=== PATIENT | male | born 2000 | race Caucasian/White ===

== ENCOUNTER 2021-05-12 21:35 | Emergency (ER) | payer OTHER, SELFPAY ==
[2021-05-12 21:42] VITALS: BP 133/82; PULSE 91; RESP 16; TEMP 37.1; O2SAT 96; BMI 24.3
--- NOTE | 2021-05-12 21:57 | XRR_ITS ---
PROCEDURE INFORMATION: Exam: XR Left Finger(s) Exam date and time: 05/12/2021 9:01 PM Age: 20 years old Clinical indication: Injury or trauma; Other: Cut while working on cabinets; Laceration; Left; Index finger; Injury date: 05/12/2021; Additional info: Laceration/index TECHNIQUE: Imaging protocol: XR Left fingers. Views: Minimum 2 views. COMPARISON: No relevant prior studies available. FINDINGS: Bones/joints: Bandage material overlies the palmar aspect of the 2nd digit at the proximal interphalangeal joint. There is deformity of the base of the middle phalanx anteriorly. An open fracture cannot be excluded. Soft tissues: Normal. XR/XR finger LT min 2V 17165 IMPRESSION: 1. Bandage material overlies the palmar aspect of the 2nd digit of the left hand. 2. There is deformity of the base of the middle phalanx of the 2nd digit anteriorly suspicious for an open fracture.
--- NOTE | 2021-05-12 21:59 | W.ED.WOUNDLC ---
HPI - Wound/Laceration General: Chief Complaint: Wound/Laceration Stated Complaint: Left Finger Lac Time Seen by Provider: 05/12/21 21:51 Source: patient Mode of arrival: ambulatory Limitations: no limitations History of Present Illness: Patient is a 20-year-old male presents to ED today along with his father for concerns of a laceration to his left index finger that he sustained just prior to arrival after he cut it on a door while they were remodeling. Tetanus is up-to-date. Onset (ago): hour(s) Extremity Location: Left: hand Place: home Patient tetanus UTD: Yes Context: accidental Associated symptoms: Reports no associated symptoms Treatments prior to arrival: bandage Review of Systems Musc: Reports: extremity pain (L index finger) Neuro: Denies: numbness in extremities or sensory changes PFS ED PFSH: Family History Brother Stroke Social History Smoking and tobacco status: never smoked Alcohol intake: never Current occupational status: student Current gender identity: Male Physical Exam Const: COMMON NORMALS: no acute distress, average body habitus, no limitations, healthy appearing, alert and well nourished Extremity: GENERAL: Yes normal exam except as noted LEFT UPPER EXTREMITY: Yes hand & digits (laceration overlying palmar PIP joint; full ROM against resistance ) Left hand and digits: Yes ROM (normal) and Yes neurovascular exam (normal) Neuro: COMMON NORMALS: moves all extremities, no focal motor deficits and no sensory deficits noted SENSORIUM/ORIENTATION: Yes alert Skin: NARRATIVE SKIN EXAM: See extremity assessment for pertinent skin findings Procedures Laceration Laceration 1: Site: hand (L index finger) Side (If applicable): left Size (cm): 2.0 Description: linear Depth: simple, single layer Local Anesthetic: lidocaine 1% (digital block) Amount of anesthesia used (mL): 3 Pre-repair: wound explored and irrigated extensively Skin layer closed with: nylon Size (cm): 4-0 Number of sutures: 5 Technique: simple, interrupted Course Vital Signs: Vital signs: Vital Signs Temperature 98.7 F 05/12/21 21:42 Pulse Rate 91 05/12/21 21:42 Respiratory Rate 16 05/12/21 21:42 Blood Pressure 133/82 05/12/21 21:42 Pulse Oximetry 96 05/12/21 21:42 MDM - Wound/Laceration Medical Decision Making Wound was copiously irrigated repaired as documented. XR does show slight deformity at the base of his middle phalanx. Patient states he has fractured this digit before however fracture is at site of injury. Patient will be placed in a finger splint and placed on antibiotics. Patient states he will be returning to college in [place] tomorrow. He will follow up with his sports medicine physician there for further evaluation. Strict return to ED precautions given. Wound care/infection precautions discussed with patient and father. Lab Data Radiology Impressions Finger X-Ray 05/12/21 21:57 IMPRESSION: 1. Bandage material overlies the palmar aspect of the 2nd digit of the left hand. 2. There is deformity of the base of the middle phalanx of the 2nd digit anteriorly suspicious for an open fracture. Discharge Plan Discharge Patient Disposition: Home Clinical Impression: Laceration of left index finger Qualifiers: Encounter type: initial encounter Damage to nail status: without damage Foreign body presence: without foreign body Qualified Code(s): S61.211A - Laceration without foreign body of left index finger without damage to nail, initial encounter Condition: Stable Prescriptions: New cephalexin 500 mg capsule 500 mg PO Q6H 7 Days Qty: 28 0RF Discharge Orders: Discharge ED (Routine); Ordered 05/12/21 Ordered By: Mary Davenport Referrals: Rocío Wilcox APN [Primary Care Provider] - Coding Level of Care Code ED Nuclear Control Room Operator for Silvia Valenzuela
== END 2021-05-12 23:02 | disposition home or self-care (01) ==
PROVIDERS: Emergency Provider Physician Assistant; PCP Nurse Practitioner Family
DX: S61.211A Laceration without foreign body of left index finger without damage to nail, initial encounter (principal); W26.8XXA Contact with other sharp object(s), not elsewhere classified, initial encounter
CPT/HCPCS: 12001; 73140; 99282

== ENCOUNTER → 2022-07-26 11:22 | Outpatient (BNVA) | payer OTHER, SELFPAY | PROVIDERS: PCP Nurse Practitioner Family; Visit Provider Nurse Practitioner Family | DX: S86.899A Other injury of other muscle(s) and tendon(s) at lower leg level, unspecified leg, initial encounter (principal); X58.XXXA Exposure to other specified factors, initial encounter; Z20.2 Contact with and (suspected) exposure to infections with a predominantly sexual mode of transmission | CPT/HCPCS: 73590; 87491; 87591 ==